=== PATIENT | female | born 1975 | race Caucasian/White ===

== ENCOUNTER 2017-06-27 14:24 | Emergency (ER) | payer SELFPAY ==
--- NOTE | 2017-06-27 15:56 | ER Document Report ---
ED General <DALJIT AL - Last Filed: 06/27/17 16:47> - General Information source: Patient TRAVEL OUTSIDE OF THE [place] IN LAST 30 DAYS: No <RAUL PUGA - Last Filed: 06/27/17 23:46> <SUNSHINE MUNSON - Last Filed: 06/27/17 23:50> - General Chief Complaint: Back Pain Stated Complaint: BACK PAIN,SKIN ISSUES Time Seen by Provider: 06/27/17 15:36 Notes: Ms. Garcia is a 42 y.o female with a PMHx of psoriasis for which she previously took Methotrexate but has since discontinued to use over the counter medications. Patient reports that she had a flare with her psoriasis and was applying some cream and believes she pulled her lower back. She reports her pain as radiating from her lower back to her hip, denies any radiation to her lower extremities. She reports trouble walking due to soreness and trouble sleeping at night due to her psoriasis. She reports her last use of steroids was a year ago. She states that she has had sciatica once before while she was . Patient denies any anxiety. Patient denies any urinary or bowel disfunction, weakness or paresthesia to her bilateral lower extremities.. ( RAUL PUGA) Past Medical History - General Information source: Patient - Social History Smoking Status: Never Smoker Cigarette use (# per day): No Chew tobacco use (# tins/day): No Smoking Education Provided: No Frequency of alcohol use: None Drug Abuse: None Skin Medical History: Reports Hx Psoriasis <RAUL PUGA - Last Filed: 06/27/17 23:46> - Social History Family History: Reviewed & Not Pertinent <SUNSHINE MUNSON - Last Filed: 06/27/17 23:50> Review of Systems - Review of Systems Constitutional: No symptoms reported EENT: No symptoms reported Cardiovascular: No symptoms reported Respiratory: No symptoms reported Gastrointestinal: No symptoms reported Genitourinary: denies: Incontinence Female Genitourinary: No symptoms reported Musculoskeletal: Back pain Skin: Lesions, Rash Hematologic/Lymphatic: No symptoms reported Neurological/Psychological: No symptoms reported <RAUL PUGA - Last Filed: 06/27/17 23:46> Physical Exam <DALJIT AL - Last Filed: 06/27/17 16:47> <RAUL PUGA - Last Filed: 06/27/17 23:46> <SUNSHINE MUNSON - Last Filed: 06/27/17 23:50> - Vital signs Vitals: Temp Pulse Resp BP Pulse Ox 98.8 F 97 16 137/82 H 98 06/27/17 14:56 06/27/17 14:56 06/27/17 14:56 06/27/17 14:56 06/27/17 14:56 - Notes Notes: GENERAL: Alert, interacts well. No acute distress. HEAD: Normocephalic, atraumatic. EYES: Pupils equal, round, and reactive to light. Extraocular movements intact. ENT: Oral mucosa moist, tongue midline. NECK: Full range of motion. Supple. Trachea midline. LUNGS: No respiratory distress. HEART: Regular rate and rhythm. No murmurs, gallops, or rubs. ABDOMEN: Soft, non-tender. Non-distended. Bowel sounds present in all 4 quadrants. BACK: Right buttock tenderness with palpation along sciatic nerve, hip flexion increases back pain. paraspinal tenderness along RT lumbar spine. Negative straight leg raise bilaterally. EXTREMITIES: No edema, radial and dorsalis pedis pulses 2/4 bilaterally. No cyanosis. NEUROLOGICAL: Alert and oriented x3. Normal speech. 5/5 great toe raising strength. 2+ patellar DTRs bilaterally. PSYCH: Normal affect, normal mood. SKIN: Diffuse raised erythematous lesions consistent with history of psoriasis. No sign of secondary bacterial infection. (RAUL PUGA) Course <DALJIT AL - Last Filed: 06/27/17 16:47> <RAUL PUGA - Last Filed: 06/27/17 23:46> <SUNSHINE MUNSON - Last Filed: 06/27/17 23:50> - Re-evaluation Re-evalutation: 06/27/17 15:56 No red flag symptoms for cauda equina, no bowel or bladder dysfunction, no decrease in sensation, no weakness, negative straight leg raising test. Patient will be started on low-dose steroids and taper for her psoriasis flare, given hydroxyzine for the itching and some of her insomnia, also given Robaxin for the pain in her back which is reproducible on palpation across her right paraspinal lumbar musculature as well as right buttock. (SUNSHINE MUNSON) - Vital Signs Vital signs: Temp Pulse Resp BP Pulse Ox 98.8 F 86 18 128/78 H 97 06/27/17 16:24 06/27/17 16:24 06/27/17 16:24 06/27/17 16:24 06/27/17 16:24 Discharge <DALJIT AL - Last Filed: 06/27/17 16:47> <RAUL PUGA - Last Filed: 06/27/17 23:46> <SUNSHINE MUNSON - Last Filed: 06/27/17 23:50> - Discharge Clinical Impression: Psoriasis, Pre-hypertension Acute lumbar back pain Qualifiers: Back pain laterality: right Sciatica presence: with sciatica Sciatica laterality: sciatica of right side Qualified Code(s): M54.41 - Lumbago with sciatica, right side Sciatica Qualifiers: Laterality: right Qualified Code(s): M54.31 - Sciatica, right side Condition: Stable Disposition: HOME, SELF-CARE Instructions: Low Back Pain ([facility]) Prescriptions: Hydroxyzine HCl 25 mg PO QHS #20 tablet Methocarbamol [Robaxin 750 mg Tablet] 750 mg PO ASDIR PRN #40 tablet PRN Reason: Prednisone [Sterapred Ds] 1 pkg PO ASDIR PRN 12 Days [email or web address] PRN Reason: Forms: Elevated Blood Pressure Referrals: FIDEL SANTIAGO DO [ACTIVE STAFF] - Follow up in 1 week Scribe Attestation: 06/27/17 23:49 I personally performed the services described in the documentation, reviewed and edited the documentation which was dictated to the scribe in my presence, and it accurately records my words and actions. (SUNSHINE MUNSON) Scribe Documentation - Scribe Written by Scribe:: Daljit Al, [id number], 06/27/2017 acting as scribe for :: Carmel <DALJIT AL - Last Filed: 06/27/17 16:47>
[2017-06-27 16:28] VITALS: BP 128/78
== END 2017-06-27 16:28 | disposition home or self-care (01) ==
LOC: ER 14:24
DX: M54.41 Lumbago with sciatica, right side (principal); L40.9 Psoriasis, unspecified; R03.0 Elevated blood-pressure reading, without diagnosis of hypertension; G47.00 Insomnia, unspecified
CPT/HCPCS: 99283